=== PATIENT | female | born 2005 | race Caucasian/White ===

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

== ENCOUNTER 2025-02-24 00:36 | Emergency (ER) | payer BC, MEDICAID ==
[2025-02-24] MEDS ORDERED: Sodium Chloride 0.9% 10 ML Syringe FLUSH PRN (01:14)
[2025-02-24] MEDS: diphenhydrAMINE 50 MG/ML SDV IVPUSH ONE (01:32)
[2025-02-24] MEDS: Acetaminophen 325 MG Tab PO ONE (01:32)
[2025-02-24] MEDS: Metoclopramide 10 MG/2 ML SDV IVPUSH ONE (01:32)
[2025-02-24] MEDS: Sodium Chloride 0.9% 1,000 ML IV ONE (01:33)
[2025-02-24 01:34] LABS: BASOPHILS PERCENT AUTO 0.2 % (0.0-1.0); EOSINOPHILS ABSOLUTE AUTO 0.1 K/mm3 (0.0-0.4); EOSINOPHILS PERCENT AUTO 0.6 % (0.0-6.0); HEMATOCRIT 39.8 % (37.0-47.0); HEMOGLOBIN 13.2 gm/dl (12.0-16.0); IMMATURE GRAN ABSOLUTE AUTO 0.04 K/mm3 (0.00-0.05); IMMATURE GRAN PERCENT AUTO 0.3 % (0.0-0.4); LYMPHOCYTES ABSOLUTE AUTO 3.3 K/mm3 (1.0-4.8); MEAN CORPUSCULAR HEMOGLOBIN 29.6 pg (28.0-32.0); MEAN CORPUSCULAR HGB CONC 33.2 g/dl (32.0-36.0); MEAN CORPUSCULAR VOLUME 89.2 fl (83.0-99.0); MEAN PLATELET VOLUME 11.6 fl (9.4-12.3); MONOCYTES ABSOLUTE AUTO 0.9 K/mm3 (0.0-0.8); MONOCYTES PERCENT AUTO 7.2 % (0.0-8.0); NEUTROPHILS ABSOLUTE AUTO 8.3 K/mm3 (1.8-7.7); NEUTROPHILS PERCENT AUTO 65.7 % (41.0-71.0); PLATELET COUNT,PLT 275 K/mm3 (150-400); RED BLOOD CELL COUNT 4.46 M/mm3 (4.10-5.30); WHITE BLOOD CELL COUNT,WBC 12.65 K/mm3 (3.9-11.3)
[2025-02-24 01:56] LABS: A/G RATIO 1.3 (1-2); ANION GAP 12.1 (5-15); BILIRUBIN TOTAL 0.3 mg/dL (0.2-1.0); BUN/CREATININE RATIO 13.3 (14-18); CALCIUM 9.1 mg/dL (8.5-10.1); CREATININE 0.9 mg/dL (0.55-1.02); EST CRCL DRUG DOSING (CG) 95.22 mL/min; POTASSIUM,K 4.1 mEq/L (3.5-5.1)
== END 2025-02-24 01:44 | disposition home or self-care (01) ==
LOC: JD.ED 00:36
DX: R51.9 Headache, unspecified (principal); M54.2 Cervicalgia; R20.2 Paresthesia of skin; Z88.6 Allergy status to analgesic agent; Z79.899 Other long term (current) drug therapy
CPT/HCPCS: 36415; 80053; 83735; 84703; 85025; 93005; 96361; 96374; 96375; 99284; A9270; J1200; J2765; J7030; 93010; 99283